=== PATIENT | female | born 1985 | race African-American/Black ===

== ENCOUNTER 2017-01-04 07:40 | Emergency (ER) | payer MEDICAID, OTHER ==
[~2017-01-04] VITALS: Ht 162.6 cm; Wt 122.0 kg
[~2017-01-04 07:40] MED LIST: AMLO5TAB2 PO; LISI10TA3 PO; NAPR550T3 PO; ROBA750T PO
[2017-01-04 07:45] VITALS: BP 131/69; PULSE 77; RESP 18; TEMP 98.2; O2SAT 98
--- NOTE | 2017-01-04 07:58 | PD ---
HPI Chief Complaint: Chest Pain Time Seen by Provider: 07:48 Travel History International Travel<30 days: No Contact w/Intl Traveler<30days: No Traveled to known affect area: No History of Present Illness HPI This is a 31-year-old female who presents to the emergency department with left- sided chest pain that started 2 days ago, intermittent, worse with deep breaths , associated with some shortness of breath, moderate severity. She denies any fevers or chills. She denies any nausea or diaphoresis. It is not exertional. It doesn't get worse with movement. Patient did see her primary care physician for this 3 weeks ago and she said she thought it was musculoskeletal. She does have a history of hypertension but denies diabetes, hyperlipidemia, family history of heart disease or smoking. PFSH Past Medical History Diminished Hearing: No Hypertension: Yes ?: Unknown LMP: 12/13/16 : 1 Para: 1 Past Surgical History Section: Yes Social History Alcohol Use: No Tobacco Use: No Substance Use: No Allergies-Medications (Allergen,Severity, Reaction): Coded Allergies: No Known Allergies (Verified , 01/04/17) Reported Meds & Prescriptions Reported Meds & Active Scripts Active Reported Amlodipine (Amlodipine Besylate) 5 Mg Tab 10 Mg PO DAILY Lisinopril 10 Mg Tab 10 Mg PO DAILY Review of Systems Except as stated in HPI: all other systems reviewed are Neg Physical Exam Narrative GENERAL:Well appearing, no acute distress. morbidly obese. SKIN: Warm and dry. HEAD: Atraumatic. Normocephalic. EYES: Pupils equal and round. No injection or drainage. ENT: Moist mucous membranes NECK: Trachea midline. CARDIOVASCULAR: Regular rate and rhythm. No murmur appreciated. RESPIRATORY: Clear to auscultation. Breath sounds equal bilaterally. GASTROINTESTINAL: Abdomen soft, non-tender, nondistended. MUSCULOSKELETAL: No obvious deformities. NEUROLOGICAL: Awake and alert. No obvious cranial nerve deficits. Moving all extremities. PSYCHIATRIC: Appropriate mood and affect; insight and judgment normal. Data Data Last Documented VS Vital Signs Date Time Temp Pulse Resp B/P Pulse Ox O2 Delivery O2 Flow Rate FiO2 01/04/17 07:45 98.2 77 18 131/69 98 Orders Electrocardiogram (01/04/17 ) Complete Blood Count With Diff (01/04/17 07:52) Comprehensive Metabolic Panel (01/04/17 07:52) ^ Insert Iv (01/04/17 07:52) Troponin I (01/04/17 07:52) D-Dimer (01/04/17 07:52) Chest, Single Ap (01/04/17 ) Labs Laboratory Tests Test 01/04/17 01/04/17 08:10 09:07 Sodium Level 137 MEQ/L Potassium Level 4.7 MEQ/L Chloride Level 104 MEQ/L Carbon Dioxide Level 25.8 MEQ/L Anion Gap 7 MEQ/L Blood Urea Nitrogen 11 MG/DL Creatinine 0.89 MG/DL Estimat Glomerular Filtration 90 ML/MIN Rate Random Glucose 93 MG/DL Calcium Level 8.6 MG/DL Total Bilirubin 0.3 MG/DL Aspartate Amino Transf 39 U/L (AST/SGOT) Alanine Aminotransferase 35 U/L (ALT/SGPT) Alkaline Phosphatase 59 U/L Troponin I LESS THAN 0.02 NG/ML Total Protein 7.9 GM/DL Albumin 3.4 GM/DL White Blood Count 4.7 TH/MM3 Red Blood Count 4.60 MIL/MM3 Hemoglobin 12.9 GM/DL Hematocrit 40.0 % Mean Corpuscular Volume 86.9 FL Mean Corpuscular Hemoglobin 28.0 PG Mean Corpuscular Hemoglobin 32.3 % Concent Red Cell Distribution Width 14.3 % Platelet Count 201 TH/MM3 Mean Platelet Volume 9.3 FL Neutrophils (%) (Auto) 43.2 % Lymphocytes (%) (Auto) 41.0 % Monocytes (%) (Auto) 11.4 % Eosinophils (%) (Auto) 3.3 % Basophils (%) (Auto) 1.1 % Neutrophils # (Auto) 2.0 TH/MM3 Lymphocytes # (Auto) 1.9 TH/MM3 Monocytes # (Auto) 0.5 TH/MM3 Eosinophils # (Auto) 0.2 TH/MM3 Basophils # (Auto) 0.1 TH/MM3 CBC Comment DIFF FINAL Differential Comment MDM Medical Decision Making Medical Screen Exam Complete: Yes Emergency Medical Condition: Yes Interpretation(s) Afebrile, no tachycardia, normotensive No leukocytosis Electrolytes are reassuring Troponin is normal EKG: Normal sinus rhythm with no ST changes Last 24 hours Impressions Chest X-Ray 01/04/17 0000 Signed Impressions: Service Date/Time: Wednesday, January 04, 2017 08:21 - CONCLUSION: Compensated cardiomegaly otherwise negative. Lorenzo Mcfarland MD FACR Differential Diagnosis Acute coronary syndrome, pulmonary embolism, pleurisy, costochondritis Narrative Course This is a 31-year-old female who presents to the emergency department with left- sided chest discomfort worse with deep breaths. She has a history of hypertension and morbid obesity. She was placed on a monitor and an IV was established. Labs were obtained which were reassuring. I very low suspicion for acute coronary syndrome in this patient given her reassuring EKG, absence of risk factors and age. I considered pulmonary embolism but she is PERC negative, her oxygen saturation is 100% and she otherwise has no risk factors. I think patient can safely be discharged and follow-up with her primary care physician. Diagnosis Primary Impression: Chest pain Qualified Code: R07.1 - Chest pain on breathing Patient Instructions: General Instructions Additional Instructions: If you develop severe chest pain, shortness of breath, sweating, lightheadedness , dizziness or difficulty breathing return to the emergency department immediately. Followup with your primary care physician in 2-3 days if your symptoms are not resolved. Med/Other Pt SpecificInfo: Prescription(s) given Scripts Naproxen 500 Mg Arp284 Mg PO BID PRN (PAIN SCALE 4 TO 10) #20 TAB Prov:Liz Lyons MD 01/04/17 Disposition: 01 DISCHARGE HOME Condition: Stable Liz Lyons MD Jan 04, 2017 07:58
--- NOTE | 2017-01-04 08:32 | RADRPT ---
EXAM DATE/TIME: 01/04/2017 08:21 [facility] COMPARISON: No previous studies available for comparison. INDICATIONS : Short of breath with chest pain for 2 days MEDICAL HISTORY : None. SURGICAL HISTORY : None. ENCOUNTER: Initial ACUITY: 1 day PAIN SCORE: 7/10 LOCATION: Bilateral chest FINDINGS: The lungs are clear. The heart is minimally enlarged. The pulmonary vascularity is normal. There is n o evidence for infiltrate or failure. The portion of the bony skeleton visualized is unremarkable. CONCLUSION: Compensated cardiomegaly otherwise negative. Lorenzo Mcfarland MD FACR on January 04, 2017 at 8:30 Board Certified Radiologist. This report was verified electronically.
[2017-01-04 08:55] LABS: BLOOD UREA NITROGEN 11 MG/DL (7-18)
[2017-01-04 08:56] LABS: ALKALINE PHOSPHATASE 59 U/L (45-117); ALT (GPT) 35 U/L (10-53); ANION GAP 7 MEQ/L (5-15); AST (GOT) 39 U/L (15-37); BICARBONATE 25.8 MEQ/L (21.0-32.0); CHLORIDE 104 MEQ/L (98-107); GLOMERULAR FILTRATION RATE 90 ML/MIN (>89); POTASSIUM 4.7 MEQ/L (3.5-5.1); SODIUM (NA) 137 MEQ/L (136-145); TOTAL BILIRUBIN ADULT 0.3 MG/DL (0.2-1.0)
[2017-01-04 09:17] LABS: BASOPHIL # 0.1 TH/MM3 (0-0.2); BASOPHIL % 1.1 % (0.0-2.0); EOSINOPHIL # 0.2 TH/MM3 (0-0.4); EOSINOPHIL % 3.3 % (0.0-4.0); HEMO FLAGS DIFF FINAL; LYMPHOCYTE # 1.9 TH/MM3 (1.0-4.8); MEAN CELL VOLUME 86.9 FL (80.0-100.0); MEAN CORPUSCULAR HGB CONC 32.3 % (32.0-36.0); MONO % 11.4 % (0.0-8.0); NEUT % 43.2 % (16.0-70.0); PLATELET COUNT 201 TH/MM3 (150-450); RED CELL DISTRIBUTION WIDTH 14.3 % (11.6-17.2); WHITE BLOOD COUNT 4.7 TH/MM3 (4.0-11.0)
[2017-01-04] MEDS ORDERED: NAPR500T PO (10:08)
--- NOTE | 2017-01-04 15:52 | EKG ---
Date Performed: 01/04/2017 Time Performed: 07:56:21 PTAGE: 31 years EKG: NORMAL Sinus rhythm INTERVENTRICULAR CONDUCTION DELAY NO PRIOR FOR COMPARISON BORDERLINE ECG NO PREVIOUS TRACING DOCTOR: Kathy Magaña Interpretating Date/Time 01/04/2017 15:50:53
== END 2017-01-04 10:25 | disposition home or self-care (01) ==
LOC: NEPC 07:40
DX: R07.1 Chest pain on breathing (principal); R94.31 Abnormal electrocardiogram [ECG] [EKG]; I10 Essential (primary) hypertension
CPT/HCPCS: 71010; 80053; 84484; 85025; 93005

== ENCOUNTER 2018-03-19 15:29 | Emergency (ER) | payer BC, OTHER ==
[~2018-03-19 15:29] MED LIST changes: +NAPR500T2 PO; -NAPR550T3 PO; -ROBA750T PO
[2018-03-19 15:36] VITALS: BP 142/80; PULSE 82; RESP 15; TEMP 99.1; O2SAT 98
[2018-03-19] MEDS ORDERED: HCTZ PO (15:48)
--- NOTE | 2018-03-19 15:59 | PD ---
HPI Chief Complaint: Back/ Neck Pain or Injury Time Seen by Provider: 15:47 Travel History International Travel<30 days: No Contact w/Intl Traveler<30days: No Traveled to known affect area: No History of Present Illness HPI 32 YO F presents to the ED for evaluation of 2 day history of cramping left sided back pain. Rated 9/10, worsened by lying down. No radiation of the pain. Patient denies injury to the area, fever, chills, nausea, vomiting, cough, chest pain, abdominal pain, dysuria. She reports urge incontinence, chronic. No treatment attempted at home. PFSH Past Medical History Diminished Hearing: No Hypertension: Yes ?: Not LMP: "LAST MONTH" : 1 Para: 1 Past Surgical History Section: Yes Social History Alcohol Use: No Tobacco Use: No Substance Use: No Allergies-Medications (Allergen,Severity, Reaction): Coded Allergies: No Known Allergies (Verified , 01/04/17) Reported Meds & Prescriptions Reported Meds & Active Scripts Active Reported [Hctz] Unknown Dose PO DAILY Amlodipine (Amlodipine Besylate) 5 Mg Tab 10 Mg PO DAILY Lisinopril 10 Mg Tab 10 Mg PO DAILY Review of Systems Except as stated in HPI: all other systems reviewed are Neg Physical Exam Narrative GENERAL: Well-nourished, well-developed obese female no acute distress. SKIN: Focused skin assessment warm/dry. No rashes or wounds of the back noted. HEAD: Normocephalic. EYES: No scleral icterus. No injection or drainage. NECK: Supple, trachea midline. No JVD or lymphadenopathy. CARDIOVASCULAR: Regular rate and rhythm without murmurs, gallops, or rubs. RESPIRATORY: Breath sounds equal bilaterally. No accessory muscle use. GASTROINTESTINAL: Abdomen soft, non-tender, nondistended. MUSCULOSKELETAL: No cyanosis, or edema. BACK: No obvious deformity. No CVA tenderness. No midline tenderness. Point tenderness below the left shoulder blade. Data Data Last Documented VS Vital Signs Date Time Temp Pulse Resp B/P (MAP) Pulse Ox O2 Delivery O2 Flow Rate FiO2 03/19/18 15:36 99.1 82 15 142/80 (100) 98 Orders Orders Urinalysis - C+S If Indicated (03/19/18 15:47) Ed Discharge Order (03/19/18 16:40) Labs Laboratory Tests Test 03/19/18 16:00 Urine Color YELLOW Urine Turbidity HAZY Urine pH 6.0 Urine Specific Pfeifer 1.020 Urine Protein NEG mg/dL Urine Glucose (UA) NEG mg/dL Urine Ketones NEG mg/dL Urine Occult Blood NEG Urine Nitrite NEG Urine Bilirubin NEG Urine Urobilinogen LESS THAN 2.0 MG/DL Urine Leukocyte Esterase MOD Urine RBC LESS THAN 1 /hpf Urine WBC 5 /hpf Urine Squamous Epithelial Cells 9 /hpf Urine Mucus FEW /lpf Microscopic Urinalysis Comment CULT NOT INDICATED MDM Medical Decision Making Medical Screen Exam Complete: Yes Emergency Medical Condition: Yes Differential Diagnosis musculoskeletal pain versus pyelonephritis versus shingles versus other Narrative Course 32 YO F presents to the ED for evaluation of 2 day history of cramping left sided back pain. No radiations, otherwise well. Physical exam reveals point tenderness just below the left shoulder blade. I can elicit no other pain response. Lung sounds clear and equal bilaterally. Abdomen soft and nontender. UA reveals no evidence of UTI, ureterolithiasis. We will treat for musculoskeletal back pain with short course of anti-inflammatories and muscle relaxants. Patient's instructed to take the medicines as prescribed, avoid driving while taking muscle relaxants, return to the ED for worsening symptoms, otherwise follow with the primary care provider. She indicated understanding the instructions. She is agreeable to the care plan. The patient is stable and discharged home. Diagnosis Primary Impression: Musculoskeletal back pain Referrals: Primary Care Physician Additional Instructions: Rest, hydrate. Resume normal, gentle activities as tolerated. Take anti-inflammatories and muscle relaxants as prescribed. Do not drive while taking muscle relaxants as they may cause drowsiness. Follow-up with your primary care provider this week. Return to the ED for worsening symptoms or any urgent or emergent medical condition. Med/Other Pt SpecificInfo: Prescription(s) given Disposition: DISCHARGE HOME Condition: Stable Alysa Drew March 19, 2018 15:59
[2018-03-19 16:14] LABS: BILIRUBIN, URINE NEG (NEG); BLOOD, URINE NEG (NEG); GLUCOSE,URINE NEG (NEG); KETONE, URINE NEG (NEG); MUCUS URINE FEW /lpf (OCC); NITRITE,URINE NEG (NEG); SQUAMOUS EPITHELIAL CELL URINE 9 /hpf (0-5); URINE COLOR YELLOW (YELLW/STRAW); URINE LEUKOCYTE ESTERASE MOD (NEG)
[2018-03-19] MEDS ORDERED: NAPR500T2 PO (16:55)
[2018-03-19] MEDS ORDERED: CYCL10TA PO (16:55)
[2018-03-20] MEDS ORDERED: HYDR12.56 PO (10:29)
== END 2018-03-19 17:10 | disposition home or self-care (01) ==
LOC: NEPK 15:29
DX: M54.9 Dorsalgia, unspecified (principal); I10 Essential (primary) hypertension
CPT/HCPCS: 81001; 99283